=== PATIENT | male | born 1960 ===

== ENCOUNTER 2025-03-03 05:17 | Observation (INO) ==
--- NOTE | 2025-02-04 10:16 | PAT Medication Instructions ---
Medication Instructions Date of Service February 04, 2025 Home Medications allopurinol 100 mg tablet 100 mg PO QAM aspirin 81 mg capsule 81 mg PO QAM cholecalciferol (vitamin D3) 25 mcg (1,000 unit) tablet (Vitamin D3) 25 mcg PO QAM clopidogrel 75 mg tablet 75 mg PO QAM colchicine 0.6 mg capsule 0.6 mg PO QAM losartan 25 mg tablet 25 mg PO QAM rosuvastatin 40 mg tablet 40 mg PO QAM ASK your surgeon for instructions colchicine 0.6 mg capsule 0.6 mg PO QAM ASK your prescriber and surgeon aspirin 81 mg capsule 81 mg PO QAM clopidogrel 75 mg tablet 75 mg PO QAM(in order for spinal or epidural anesthesia, Plavix needs to be stopped 7 days before surgery. Please check if okay with doctor that prescribes this to you) DO NOT take the morning of surgery cholecalciferol (vitamin D3) 25 mcg (1,000 unit) tablet (Vitamin D3) 25 mcg PO QAM losartan 25 mg tablet 25 mg PO QAM Take morning of surgery With a small sip of water, OTHERWISE NOTHING TO EAT OR DRINK AFTER MIDNIGHT: allopurinol 100 mg tablet 100 mg PO QAM rosuvastatin 40 mg tablet 40 mg PO QAM Other Notes If you have any questions please call us at [phone] or [phone] or [phone] or [phone]
--- NOTE | 2025-02-25 07:53 | History & Physical Report ---
Date of Service February 25, 2025 Assessment & Plan (1) Osteoarthritis of right knee: 64-year-old Jean from [place] with advanced bilateral knee DJD. 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 Failed conservative treatment. It is limiting his activity would like to have his knees fixed. He would like to start by having his right knee replaced. He is on Plavix with a history of underlying cardiac stent placement. Plan: We are going to take him to the operating room do a right total knee replacement. The risks met this procedure explained. Informed consent was obtained. He knows to hold his Plavix a week before surgery she will take metoprolol in the morning with a sip of water. He is going to stay with his daughter here during recovery. We use Plavix for DVT prophylaxis. (2) History of myocardial infarction: (3) Hypertension: (4) Hyperlipidemia: History of Present Illness Chief Complaint: . Bilateral knee pain and discomfort right side greater than left. Primary Care Provider: NO PCP . The patient is a 64-year-old gentleman who lives in [place] but his daughter lives here in [place] who presents for surgical treatment of his right knee. Got a long history of bilateral knee pain discomfort of the right side worse than the left. He has been treated with injections on several occasions which have become less successful over time. He is trying to stay active but having more difficulty doing this due to his knee pain. He would like to have his right knee fixed. He is hoping to do this here where his daughter can assist in his care. Allergies Allergy/AdvReac Type Severity Reaction Status Date / Time No Known Allergies Allergy Verified 02/04/25 09:01 Home Medications Medication Instructions Recorded Confirmed Type allopurinol 100 mg tablet 100 mg PO QAM 02/04/25 02/04/25 History aspirin 81 mg capsule 81 mg PO QAM 02/04/25 02/04/25 History cholecalciferol (vitamin D3) 25 25 mcg PO QAM 02/04/25 02/04/25 History mcg (1,000 unit) tablet (Vitamin D3) clopidogrel 75 mg tablet 75 mg PO QAM 02/04/25 02/04/25 History colchicine 0.6 mg capsule 0.6 mg PO QAM 02/04/25 02/04/25 History losartan 25 mg tablet 25 mg PO QAM 02/04/25 02/04/25 History rosuvastatin 40 mg tablet 40 mg PO QAM 02/04/25 02/04/25 History Past Med/Surg History Problem List Osteoarthritis of right knee Medical History Hx of gout Osteoarthritis On anticoagulant therapy History of myocardial infarction July 2022 Hypertension Hyperlipidemia Surgical History History of appendectomy H/O hernia repair (2020) History of tooth extraction History of tonsillectomy and adenoidectomy History of heart artery stent at age 58>2 stents placed "short of breath" @ [facility] >followed by Dr. Nitesh Mendoza [facility] in [place] July 2022>2 stents placed [facility] in [place] Family History Other No family history of adverse response to anesthesia Social History Smoking Status: Never smoker Second Hand Exposure: Yes (in the past); Do You Dip or Chew Tobacco: No; Hx Alcohol Use: No Preferred Language: Montenegrin Inspector Machine Parts Required: No Beliefs That Will Affect Care: None Current Living Situation: Alone and Other Current Living Situation Comment: currently lives in [place]>[facility] for [facility] Feels Safe at Home: Yes Safety Concerns: Feels Safe At This Time Assistive Devices: Glasses Review of Systems All systems reviewed & are unremarkable except as noted in HPI & below. Physical Exam . Physical examination reveals a pleasant middle-aged male. Examination of the right knee reveals the patient walks with an antalgic gait. Clear limps on his right leg. Is got varus alignment to his knee with a varus thrust with weightbearing. Range of motion is about 5 degrees short of full extension to about 105 degrees of flexion. He does have some laxity with Flora testing. Little bit of pseudolaxity to varus valgus stress testing as well. Good straight leg raise. He is neurologically intact. No pain with hip motion. Constitutional WD/WN, vitals as above Respiratory normal respiratory effort, lungs clear to auscultation Cardiovascular RRR, no murmur, no edema Gastrointestinal (Abdomen) normal bowel sounds, soft, nontender, no hepatosplenomegaly Results & Data Results & Data Laboratory Results . Diagnostic Findings . X-rays of both knees were reviewed. Shows advanced bilateral knee DJD. There is got complete loss of the medial joint space in both knees. The right side is a bit worse than the left. Is got a little bit of tibiofemoral subluxation and some subchondral sclerosis. Got a little bit of bony destruction of the medial tibial plateaus worse on the right than the left. PG Care Time/CCT Total # of Minutes Spent Total Time Spent with Patient: Total time spent is greater than 50% in coordination of care (as documented) at patient's floor/unit and/or counseling patient: Coding Level of Care Code None Diagnoses Osteoarthritis of right knee M17.11 History of myocardial infarction I25.2 Hypertension I10 Hyperlipidemia E78.5
--- NOTE | 2025-02-25 10:15 | Anesthesiology Consultation ---
Date of Service February 25, 2025 Assessment & Plan (1) Encounter for pre-operative examination: - surgeon ordered CXR and repeat type and screen to be done DOS per blood bankMegan with surgeon's office confirmed nothing else needs ordered for DOS per Dr. Livingston. - cardiology clearance 02/08/25: "...low to intermediate risk for kya/post operative cardiac event..." - cardiology office visit 12/04/24: "...coronary artery disease having NSTEMI and previous intervention...doing quite well...knee surgery...may entail a stress test...atrial fibrillation post NSTEMI 07/2021. Chronic PVCs...ETOH abuse...cardiomyopathy, nonischemic. BMS in LAD coronary artery, bare metal stent BMSC...return to clinic 6 months with ECG..." Subsequent stress test as summarized above. - Outpatient joint assessment: Patient is currently scheduled for inpatient pathway. If re-evaluated and patient/surgeon requests outpatient pathway, patient is not ideal candidate for outpatient joint program from anesthesia standpoint, patient was not seen in PAT. - Per electronics test engineer on 02/04/25: No known infectious disease contacts, current infectious disease symptoms in past 10 days or COVID positive test result in the past 30 days. Chart Review Chart Review: Acceptable Risk for Surgery and Patient NOT seen in Pre Admission Testing History Surgery Operation Date: 03/03/25 07:00 Proposed Procedures p Right Total Knee Arthroplasty - Elijah Livingston MD Height/Weight Height: 5 ft 9.25 in Weight: 102.512 kg Allergies Allergy/AdvReac Type Severity Reaction Status Date / Time No Known Allergies Allergy Verified 02/04/25 09:01 Medications Home Medications Medication Instructions Recorded Confirmed Last Taken allopurinol 100 mg tablet 100 mg PO QAM 02/04/25 02/04/25 Unknown aspirin 81 mg capsule 81 mg PO QAM 02/04/25 02/04/25 Unknown cholecalciferol (vitamin D3) 25 25 mcg PO QAM 02/04/25 02/04/25 Unknown mcg (1,000 unit) tablet (Vitamin D3) clopidogrel 75 mg tablet 75 mg PO QAM 02/04/25 02/04/25 Unknown colchicine 0.6 mg capsule 0.6 mg PO QAM 02/04/25 02/04/25 Unknown losartan 25 mg tablet 25 mg PO QAM 02/04/25 02/04/25 Unknown rosuvastatin 40 mg tablet 40 mg PO QAM 02/04/25 02/04/25 Unknown Past Medical History Medical History (Updated 02/25/25 @ 10:09 by Catherine Alicia PA-C) CAD (coronary artery disease) s/p stenting to LAD and diagonal branch 03/2018; stenting of Cx and OM1 07/2021 per cardio records History of myocardial infarction July 2022 Hx of gout Hyperlipidemia Hypertension Nonischemic cardiomyopathy On anticoagulant therapy Osteoarthritis Paroxysmal atrial fibrillation Past Family History Family History Other No family history of adverse response to anesthesia Past Surgical History Surgical History H/O hernia repair (2020) History of appendectomy History of heart artery stent at age 58>2 stents placed "short of breath" @ [facility] >followed by Dr. Nitesh Mendoza [facility] in [place] July 2022>2 stents placed [facility] in [place] History of tonsillectomy and adenoidectomy History of tooth extraction Social History Smoking Status: Never smoker Do You Dip or Chew Tobacco: No Hx Alcohol Use: No substance use type: does not use Lab Results Anesthesia Preop Results Results Anesthesia Widget: WBC 8.03 K/uL (4.8-10.8) 02/17/25 Hgb 13.0 g/dL L 02/17/25 Hct 40.4 % (42.0-52.0) L 02/17/25 Plt 294 K/uL (130.0-400.0) 02/17/25 PT 12.4 seconds (9-12) H 02/17/25 INR 0.91 (0.9-1.1) 02/17/25 Testing Laboratory Results 02/17/25 WBC: 8 H/H: PLATELETS: 294,000 SODIUM: 140 POTASSIUM: 4.6 CHLORIDE: 105 CO2: 25 BUN: 16 CREATININE: 1.2 GLUCOSE: 82 PTT: 28.7 Type and screen: AB positive, negative indirect Lele A1c: 5.2% Electrocardiogram Date: 10/07/24 Sinus rhythm with occasional ventricular premature complexes, rate 77 bpm Stress Test Date: 02/03/25 Abnormal perfusion study Suggestive of low risk for future cardiovascular events LV markedly enlarged on the stress studies Stress LVEF 40% and LV global function is mildly reduced Rest LV cavity moderately enlarged and EF calculated at 36% Myocardial blood flow reserve is reduced in the anterior, lateral and apical segment(s) which is suggestive of flow limiting stenosis Findings consistent with nonischemic cardiomyopathy
[2025-03-03] MEDS: LR 500ML BOLUS, THEN 15ML/HR IV SCH (05:45)
[2025-03-03] MEDS: ACETAMINOPHEN 500 MG TAB PO SCH ×2 (05:55→13:07)
[2025-03-03] MEDS: FAMOTIDINE 20 MG TAB PO SCH (05:55)
[2025-03-03] MEDS: LR 60ML/HR IV SCH (05:55)
[2025-03-03] MEDS: CeleBREX 200 MG CAP PO SCH (05:55)
[2025-03-03] MEDS: METOCLOPRAMIDE HCL 10 MG TABLET PO SCH (05:55)
[2025-03-03] MEDS: dexAMETHasone**PF** 10 MG/ML VIAL IV SCH (05:58)
[2025-03-03] MEDS ORDERED: ROPIVACAINE 0.5% 5 MG/ML 30 ML VIAL ONE (06:26)
[2025-03-03] MEDS ORDERED: BUPIVACAINE 0.5 % 5 MG/1 ML PF 10ML VIAL ONE (06:26)
[2025-03-03] MEDS ORDERED: EPINEPHrine INJ 1 MG/ML AMP ONE (06:26)
[2025-03-03] MEDS ORDERED: fentaNYL citrate PF 100 MCG/2 ML VIAL ONE (06:41)
[2025-03-03] MEDS ORDERED: MIDAZOLAM HCL 1 MG/ML 2ML VIAL ONE (06:41)
--- NOTE | 2025-03-03 06:50 | History & Physical Bridge Note ---
Date of Service March 03, 2025 History & Physical Bridge Note I have examined the patient, reviewed the History & Physical and in the interval since the performance of the History & Physical I have noted the following changes of clinical significance: no changes noted
--- NOTE | 2025-03-03 07:03 | XRay Report ---
EXAM: XR chest 2V PA/lateral CLINICAL HISTORY: pre-op TECHNIQUE: X-ray images of the chest were obtained in posteroanterior (PA) and lateral projections. COMPARISON: No prior studies available for comparison. FINDINGS: Pulmonary Parenchyma: Minimal congestive changes in lungs. No evidence of consolidation, collapse, or focal opacities. No pulmonary nodules identified. No evidence of pleural effusion or pleural thickening. Heart and Mediastinum: Heart size and shape are normal. No mediastinal widening or masses. No hilar or mediastinal lymphadenopathy. Bony Thorax: Bony thorax appears intact without fractures or deformities. Thoracic spine spondylotic changes. Soft Tissues: Soft tissues overlying the chest wall are unremarkable. IMPRESSION: No acute cardiopulmonary abnormalities identified. Electronically signed by Zion Gore 03-03-2025 07:02 AM
[2025-03-03] MEDS: ceFAZolin 2000MG 2,000 MG/15 ML SYR IV SCH ×2 (07:06→16:25)
[2025-03-03] MEDS ORDERED: HYDROmorphone INJ 2 MG/ML SYR/VIAL ONE (07:18)
[2025-03-03] MEDS ORDERED: ATROPINE SULFATE 0.1 MG/ML 10ML SYR IV PRN (07:45)
[2025-03-03] MEDS ORDERED: NALOXONE HCL 0.4 MG/1 ML VIAL/CARP IV PRN ×2 (07:45→11:18)
[2025-03-03] MEDS ORDERED: ePHEDrine sulfate 50 MG/ML AMP IV PRN (07:45)
[2025-03-03] MEDS ORDERED: PROMETHAZINE HCL 6.25 MG in SODIUM CHLORIDE 0.9% 50 ML IV PRN (07:45)
[2025-03-03] MEDS ORDERED: FLUMAZENIL 0.1 MG/1 ML 10 ML VIAL IV PRN (07:45)
[2025-03-03] MEDS: ORTHO JOINT ANESTHETIC ONE (07:47)
[2025-03-03] MEDS ORDERED: LIDOCAINE 2% 2 ML VIAL/AMP(20MG/ML) INFIL ONE (08:12)
[2025-03-03] MEDS ORDERED: SUCCINYLCHOLINE CHLORIDE 20 MG/ML 10 ML VIAL IV ONE (08:12)
[2025-03-03] MEDS ORDERED: PROPOFOL IV EMULSION 10 MG/ML 100 ML VIAL IV ONE (08:15)
[2025-03-03] MEDS ORDERED: ONDANSETRON INJ 2 MG/ML 2 ML VIAL ONE (08:15)
[2025-03-03] MEDS ORDERED: KETOROLAC 30 MG/ML VIAL ONE (08:15)
[2025-03-03] MEDS: TRANEXAMIC ACID 1,000 MG **IV Intra-op IV SCH (08:16)
[2025-03-03] MEDS ORDERED: PHENYLEPHRINE 100MCG/ML 5ML SYR ONE (08:40)
[2025-03-03] MEDS ORDERED: PHENYLEPHRINE HCL 10 MG/ML VIAL ONE (08:47)
[2025-03-03] MEDS ORDERED: REMIFENTANIL HCL 1 MG VIAL IV ONE (08:50)
[2025-03-03] MEDS: ROPIV 0.5% 246mg, Ketorolac 30mg, EPINEPHrine 0.5mg in NSS INFIL SCH (08:55)
--- NOTE | 2025-03-03 09:29 | Operative Report ---
PG Post Operative Report Pre & Post Diagnosis Operation Date: 03/03/25 07:00 Pre-Op Diagnosis: Right Knee Osteoarthritis Post-Op Diagnosis: Right Knee Osteoarthritis I identified the patient and participated in the time-out.: Yes Procedure Operation Date: 03/03/25 07:00 Actual Procedures p Right Total Knee Arthroplasty(Right) - Elijah Livingston MD Surgeon Elijah Livingston MD Web Content Producer Francisco Jordan PA-C Estimated Blood Loss 50 Findings Consistent with Post-Op Diagnosis Specimens Right knee sent for pathology. Anesthesia Type General Regional Complications none Disposition Accompanied Patient To Recovery: No Indications Patient is a 64-year-old gentleman from [place] who was had a long history of bilateral knee pain discomfort described got worse over time. He failed conservative measures. X-rays show advanced bilateral knee DJD right side a bit worse than the left. He elected to have right knee replacement done locally here where his daughter lives. Description of Procedure Operative implants consist of: 1 Biomet Vanguard size 72.5 right posterior stabilized femoral component. 2. Biomet size 83 tibial tray. 3. 12 mm Po stabilized polyethylene insert. 4. 34 x 8-1/2 all poly patella. The patient was taken to the op room, identified, placed on the operating table in the supine position. All contact areas were appropriately padded. IV antibiotics were by anesthesia team. I adductor canal block had been Weida in the holding area. General anesthetic was implemented. A right thigh turn was then placed. The right lower extremity was then prepped and draped in usual sterile fashion. The right leg was elevated exsanguinated with use of an Esmarch and a turn was placed at 300 mmHg. An anterior approach of the right knee was then performed through a longitudinal incision centered over the patella. Sharp dissection was Through subcutaneous tissue down the extensor mechanism. A medial parapatellar arthrotomy incision was made. Some subperiosteal dissection was carried out medially. The fat pad was resected from each patella tendon. Lateral patellofemoral ligament was released. The patella subluxated laterally and the knee was flexed. The osteophytes taken off the distal femur. The remnant of the ACL and the PCL were then released from the distal femur and the tibia subluxated anteriorly. The external treatment LYMErix then placed on the interface the tibia and adjusted 14 mm medially. Proximal tibial cut was made essentially flush with the most deficient aspect of the posterior medial tibial plateau. Some osteophytes taken off medially. The tibia was sized to a size 83. Attention was then drawn the femur. The distal femur examined the sharp drill. Intramedullary canal was suction. A right 6 degree valgus cutting guide was placed. The distal femoral cutting block was pinned in place. This femoral cut was made to take an additional 3 mm of bone off distal femur. The femur was then sized to a size 72.5. The AP cutting block was pinned parallel to the epicondylar axis which was 3 degrees of external rotation. Anterior cut, anterior chamfer, posterior cut, posterior chamfer cuts were made. The box cutting guide was placed in a just slight lateral the box cut was made. The knee was flexed with the remnants of the medial and lateral menisci were excised. The osteophytes taken off the posterior aspect of the femur. A trial femoral component was placed. The tibial tray was pinned in Nila external rotation and the drill and stem points were used. Defect in proximal tibia for the tibial tray. The knee was then trialed and the 12 mm insert fit most appropriately. Attention drawn the patella. The patella was cleaned of all soft tissue. Patella thickness measured 26 mm in thickness was cut down to 16. Was sized to a size 34 patella. The lug holes were drilled for the 34 patella. The lateral osteophytes removed. Patella button was placed. Knee was taken through range of motion patella tracked nicely with no thumbs test. Attention jointer placed in the permanent components. All trial components were removed. A bone plug was placed in the distal femur limit blood loss. A double batch of Palacos G cement was mixed. Biomet Vanguard size 72.5 right posterior stabilized femoral component and a size 83 tibial tray was then cemented in place along with a 12 mm posterior stabilized insert. Upon cementing the cement hardened fairly quickly so I did not get a chance to cement the patella in this initial cementation. Therefore wrote once these implants are in and the knee is extension we mixed another a single batch of Palacos G cement. The patella was then cemented. The knee was held until all cement hardened. I injected locally with 100 cc of Ortho mix. The patient did receive 1 g tranexamic acid to the tourniquet was then let down for final tourniquet time 79 minutes. Hemostasis surgeries electrocautery. Wounds once again irrigated and the extensor Metros then closed with combination 1 PDS suture #1 Vicryl suture in a [id number] fashion. Extensor Meclomen checked found to be intact. Subcutaneous tissue then closed with 2 Dexon suture in a buried interrupted fashion skin was closed skin echo. Leg was then cleaned and dried and sterile dressed with Xeroform, 4 fours, sterile cast padding, Ray bandage were applied. Patient then transferred to the recovery room in stable condition. Patient tolerated procedure well and there were no complications. Francisco Jordan, my physician engineering assistant, was present for the entire procedure. His assistance was required for proper patient positioning, prepping and draping, surgical exposure, retraction, perform the technical details of the operation, placement of the implants, closure of the incision site, placement of postoperative sterile bandage. I attest to the content of the Intraoperative Record and any orders documented therein. Any exceptions are noted below.
[2025-03-03] MEDS: fentaNYL citrate PF 100 MCG/2 ML VIAL IV PRN (09:57)
[2025-03-03] MEDS: ONDANSETRON INJ 2 MG/ML 2 ML VIAL IV PRN (10:18)
--- NOTE | 2025-03-03 10:18 | XRay Report ---
XR knee RT 1 or 2V routine CLINICAL HISTORY: Surgical Post Op COMPARISON: None FINDINGS: Right knee prosthesis shows no hardware complication. There is expected soft tissue gas. S kin echo are present. IMPRESSION: Unremarkable postoperative exam. ACT 112: Negative or not required by law. Electronically signed by: Mart Crowell M.D. 03/03/2025 10:17 AM
--- NOTE | 2025-03-03 11:01 | Anesthesiology Progress Note ---
Date of Service March 03, 2025 Anesthesia Post Procedure Vital Signs Vital Signs: Temp Pulse Resp BP Pulse Ox O2 Del Method O2 Flow Rate 03/03/25 10:45 99 H 10 L 113/81 93 Nasal Cannula 2 03/03/25 10:30 36.5 C 95 H 12 130/81 93 Nasal Cannula 2 03/03/25 10:20 94 H 14 117/79 93 Nasal Cannula 2 03/03/25 10:10 96 H 13 124/85 92 Nasal Cannula 2 03/03/25 09:50 95 H 17 135/75 93 Nasal Cannula 2 03/03/25 09:40 90 12 130/76 97 Nasal Cannula 2 03/03/25 09:30 91 H 12 134/78 98 Oxymask 4 03/03/25 09:22 36.2 C L 96 H 17 125/76 97 Oxymask 8 03/03/25 05:30 36.6 C 93 H 20 130/86 94 Room Air Pain Intensity Right Knee: Pain Intensity: 5 Transfer of Care Handoff Completed per policy Notes Mental Status: alert / awake / arousable Patient Amnestic to Procedure: Yes Nausea / Vomiting: adequately controlled Pain: adequately controlled Airway Patency, RR, SpO2: stable & adequate BP & HR: stable & adequate Hydration State: stable & adequate Anesthetic Complications: no major complications apparent
[2025-03-03] MEDS ORDERED: METOCLOPRAMIDE HCL INJ 5 MG/ML 2 ML VIAL IV PRN (11:18)
[2025-03-03] MEDS ORDERED: ALUMINUM/MAGNESIUM SUSP 30 ML UDC PO PRN (11:18)
[2025-03-03] MEDS ORDERED: bisacodyL 10 MG SUPP PR PRN (11:18)
[2025-03-03] MEDS ORDERED: HYDROmorphone INJ 0.5 MG/0.5 ML SYR IV PRN (11:18)
[2025-03-03] MEDS ORDERED: MAGNESIUM HYDROXIDE SUSP 30 ML UDC PO PRN (11:18)
[2025-03-03] MEDS ORDERED: ONDANSETRON INJ 2 MG/ML 2 ML VIAL IV PRN (11:18)
[2025-03-03] MEDS: HYDROmorphone INJ 1 MG/ML SYRINGE IV PRN (11:22)
[2025-03-03] MEDS: SODIUM CHLORIDE 0.9% 1,000 ML IV SCH (12:05)
[2025-03-03] MEDS: KETOROLAC TROMETHAMINE 15 MG/ML VIAL IV SCH (12:27)
[2025-03-03] MEDS: oxyCODONE HCL IR 5 MG TAB (IMMEDIATE RELEASE) PO PRN (16:24)
[2025-03-03] MEDS: ASCORBIC ACID 500 MG TAB PO SCH (16:24)
[2025-03-03] MEDS: TRANEXAMIC ACID / 0.7% NACL 1,000 MG/100 ML BAG IV SCH (16:25)
[2025-03-03] MEDS: DOCUSATE SODIUM 100 MG CAP PO SCH (20:29)
[2025-03-03] MEDS: SENNA 8.6 MG TAB PO SCH (20:29)
[2025-03-03] MEDS ORDERED: SENNA 8.6 MG TAB PO SCH (21:00)
[2025-03-04 06:32] LABS: Hematocrit (blood only) 29.8 % (42.0-52.0); Hemoglobin 9.9 g/dl (14.0-18.0); Mean Corpuscular Hemoglobin 29.6 pg (25.0-34.0); Mean Corpuscular Hgb Conc 33.2 g/dL (32.0-36.0); Mean Platelet Volume 9.6 fL (9.4-12.4); Platelet Count 281 K/uL (130-400); RDW Coefficient of Variation 12.9 % (11.5-14.5); RDW Standard Deviation 42.3 fL (36.4-46.3); Red Blood Count 3.35 M/uL (4.70-6.10); White Blood Count 10.31 K/ul (4.8-10.8)
[2025-03-04 06:55] LABS: Calcium 8.3 mg/dl (8.6-10.3); Creatinine Clr Calc Pharmacy 64.9 ml/min
--- NOTE | 2025-03-04 07:28 | Orthopedic Progress Note ---
Date of Service March 04, 2025 Assessment & Plan (1) History of arthroplasty of right knee: POD 1 right total knee arthroplasty by Dr. Livingston - Patient is doing well and pain is under control. - May restart home anticoagulation. This will help with DVT prophylaxis. - Home physical therapy recommended. Will be reevaluated at his 2-week postop with Dr. Livingston. - In addition to home anticoagulation, would recommend SCDs, CECY hose, mobilization, for DVT prophylaxis. - Orthopedically stable for discharge. Would appreciate PT/OT inpatient consultation prior to discharge. - Follow-up in [address] Livingston as an outpatient. Subjective Operation Date: 03/03/25 07:00 Actual Procedures p Right Total Knee Arthroplasty(Right) - Elijah Livingston MD Patient is postop day 1 from a right total knee arthroplasty by Dr. Livingston. He is doing well. States he is ready for discharge. He is sitting in his hospital recliner. States his pain is under control. No other questions or concerns today. Review of Systems All systems reviewed & are unremarkable except as noted in HPI & below. Physical Exam General: Alert and oriented. No acute distress. Right knee: Dressing check satisfactory. No saturation of the dressing. He is in his hospital recliner with his knee flexed to 45 degrees. He is neurovascularly intact in the right lower extremity. Results & Data Results & Data Laboratory Results . Diagnostic Findings . PG Care Time/CCT Total # of Minutes Spent Total Time Spent with Patient: Total time spent is greater than 50% in coordination of care (as documented) at patient's floor/unit and/or counseling patient: Coding Level of Care Code 56267 Post Operative Follow-Up Diagnoses History of arthroplasty of right knee Z96.651
[2025-03-04] MEDS: ASPIRIN 81 MG ECTAB PO SCH (07:58)
[2025-03-04] MEDS: allopurinoL 100 MG TAB PO SCH (07:58)
[2025-03-04] MEDS: CLOPIDOGREL BISULFATE 75 MG TAB PO SCH (07:58)
[2025-03-04] MEDS: dexAMETHasone 10 MG in SYRINGE 0 ML IV SCH (07:58)
[2025-03-04] MEDS: TAMSULOSIN HCL 0.4 MG CAP PO SCH (07:59)
[2025-03-04] MEDS: MULTIVITAMIN TAB PO SCH (07:59)
[2025-03-04] MEDS: LOSARTAN POTASSIUM 25 MG TAB PO SCH (07:59)
[2025-03-04] MEDS: CHOLECALCIFEROL 25 MCG (1000 UNITS) TAB PO SCH (07:59)
[2025-03-04] MEDS: ROSUVASTATIN CALCIUM 20 MG TAB PO SCH (07:59)
[2025-03-04] MEDS: COLCHICINE 0.6 MG TAB PO SCH (07:59)
[2025-03-04] MEDS ORDERED: CLOPIDOGREL BISULFATE 75 MG TAB PO SCH (09:00)
== END 2025-03-04 11:27 | disposition home health service (06) ==
LOC: ASU 05:17 → PACUINP 05:17 → 3E 12:00